=== PATIENT | male | born 1955 | race Caucasian/White ===

== ENCOUNTER 2017-07-18 20:47 | Emergency (ER) | payer OTHER ==
[2017-07-18] MEDS ORDERED: LET GEL TOPICAL 1 EA SYR TP ONE ×2 (21:36→21:57)
--- NOTE | 2017-07-18 22:00 | EDPHY ---
H & P Smoking Status: Former smoker Time Seen by Provider: 07/18/17 21:00 HPI/ROS: Chief complaint: Trip and fall with right knee injury History of present illness: This is a 61-year-old male who presents to the emergency department for evaluation after sustaining a trip and fall onto concrete. He has noticed a small wound just below the knee. He is concerned a fair amount of gravel got ground into it. He also has road rash to his left arm although this causes only minimal discomfort. No other injuries reported. He is still ambulating well. His tetanus is up-to-date. (Vadim Moise) Physical Exam: General Appearance: Alert, nontoxic Eyes: PERRLA Respiratory: Lungs clear to auscultation bilaterally Cardiac: Regular rate and rhythm. Neurological: Alert and oriented x4. Strength and sensation intact in all extremities. Skin: There is a puncture wound inferior to the right knee joint. It is explored extends about 1 cm laterally. There is a fair amount of abrasion and associated debris around and abrasion. Abrasion to the left arm. Musculoskeletal: Patient is moving all extremities without difficulty. He is ambulating well. (Vadim Moise) Constitutional: Initial Vital Signs Temperature (C) 36.7 C 07/18/17 20:51 Heart Rate 81 07/18/17 20:51 Respiratory Rate 16 07/18/17 20:51 Blood Pressure 94/56 L 07/18/17 20:51 O2 Sat (%) 91 L 07/18/17 20:51 O2 Delivery Mode Room Air Allergies/Adverse Reactions: No Known Allergies Allergy (Unverified 03/09/15 16:16) MDM/Departure - MDM Medications Given: Discontinued Medications Tetracaine/Epinephrine/Lidocaine (Let Gel Topical) 1 ea TP EDNOW ONE Stop: 07/18/17 21:58 Last Admin: 07/18/17 22:02 Dose: 1 ea ED Course/Re-evaluation: Patient is seen under the supervision of my secondary supervising physician Dr. Annette Kwong. Patient presents after a trip and fall resulting in wounds. His tetanus is up-to-date. He appears to have a small puncture wound with abrasions to the right leg below the knee. No evidence of joint involvement. Minor abrasions to the left arm. The wounds have been cleaned. I believe it is best to allow these to heal by secondary intention. Home care is discussed. Return precautions are given. (Vadim Moise) The patient was evaluated and managed by the physician starch treating assistant. I have reviewed this chart and I agree with the findings and plan of care as documented , as indicated by my signature. I am the secondary supervising physician. ( Annette Kwong) Differential Diagnosis: Included but not limited to abrasion, puncture wound, laceration, I do not appreciate evidence of joint space involvement or bony injury (Vadim Moise) - Depart Disposition: Home, Routine, Self-Care Clinical Impression: Abrasion, Puncture wound Condition: Good Instructions: Acute Wounds (ED) Additional Instructions: Follow-up with your primary care doctor on Friday for recheck If symptoms worsen or new symptoms develop return to the emergency room for recheck Referrals: Leslie Barron PA [Primary Care Provider] - As per Instructions
[2017-07-18 22:13] VITALS: BP 110/64
== END 2017-07-18 22:11 | disposition home or self-care (01) ==
DX: S81.031A Puncture wound without foreign body, right knee, initial encounter (principal); S40.812A Abrasion of left upper arm, initial encounter; W01.0XXA Fall on same level from slipping, tripping and stumbling without subsequent striking against object, initial encounter; Y99.8 Other external cause status; Z87.891 Personal history of nicotine dependence